=== PATIENT | female | born 1995 | race Caucasian/White ===

== ENCOUNTER 2018-08-21 17:12 | Emergency (ER) | payer OTHER ==
[~2018-08-21] VITALS: Ht 180.3 cm; Wt 84.1 kg
[~2018-08-21 17:12] MED LIST: ATIVAN 0.50.5 MG/TAB PO; FLOVENT DI100 MCG/Ac IH; NO HOME MEDS; RT ADVAIR 228 DISKUS IH; SINGULAIR 5M5 MG/TAB PO; VENTOLIN0.09 MG IH; ZANTAC 150 EFF150 M1 PO; ZYRTEC 10MG10 MG PO
[2018-08-21 17:27] VITALS: BP 119/77; TEMP 98.3
[2018-08-21] MEDS ORDERED: LEXAPRO 10MG10 MG PO (17:54)
[2018-08-21] MEDS ORDERED: ZOFRAN ODT4 MG PO (19:20)
[2018-08-21 19:33] VITALS: PULSE 70
== END 2018-08-21 19:33 | disposition home or self-care (01) ==
LOC: COL.ER 17:12
DX: S06.0X0A Concussion without loss of consciousness, initial encounter (principal); S16.1XXA Strain of muscle, fascia and tendon at neck level, initial encounter; R40.2412 Glasgow coma scale score 13-15, at arrival to emergency department; W19.XXXA Unspecified fall, initial encounter; W22.8XXA Striking against or struck by other objects, initial encounter

== ENCOUNTER 2018-09-16 01:06 | Emergency (ER) | payer OTHER ==
[~2018-09-16] VITALS: Ht 180.3 cm; Wt 81.8 kg
[~2018-09-16 01:06] MED LIST changes: +LEXAPRO 10MG10 MG PO; +ZOFRAN ODT4 MG PO
[2018-09-16 01:13] VITALS: TEMP 98.2
[2018-09-16 01:39] LABS: BASO # 0.1 (0.0-0.2); BASO % 0.5 % (0.0-2.0); EOS # 0.1 (0.0-0.7); EOS % 0.4 % (0-4.0); GRAN # 8.2 (1.4-6.5); GRAN % 66.5 % (42.2-75.2); HEMATOCRIT 41.3 % (37.0-47.0); HEMOGLOBIN 14.2 g/dl (12.5-16.0); LYMPH # 2.9 (1.2-3.4); LYMPH % 23.1 % (20.0-51.0); MEAN CELL VOLUME 88 fl (80.0-100.0); MEAN CORPUSCULAR HEMOGLOBIN 30 pg (27.0-31.0); MEAN CORPUSCULAR HGB CONC 34 g/dl (33.0-37.0); MEAN PLATELET VOLUME 9.5 fl (7.4-10.4); MONO # 1.1 (0.1-0.6); MONO % 9.2 % (1.7-9.3); PLATELET COUNT 363 K/mm3 (130-400); RED BLOOD COUNT 4.71 M/mm3 (4.10-5.30); REDCELL DISTRIBUTION WIDTH-CV 11.9 % (11.5-14.5)
[2018-09-16 01:50] LABS: ACETAMINOPHEN 26 ug/mL (10-30); ALANINE AMINOTRANSFERASE 31 U/L (9-52); ALBUMIN 4.1 gm/dL (3.5-5.0); ALCOHOL(ethanol),MEDICAL < 10 mg/dL; ALKALINE PHOSPHATASE 87 U/L (50-136); ANION GAP 13 mmol/L (7-16); AST,SGOT 31 U/L (15-37); BILIRUBIN,TOTAL 0.5 mg/dL (0.0-1.0); BLOOD UREA NITROGEN 7 mg/dL (7-17); CALCIUM 9.6 mg/dL (8.4-10.2); CARBON DIOXIDE 25 mmol/L (22-30); CHLORIDE 102 mmol/L (98-107); CREATININE, serum 0.58 (0.52-1.25); GLUCOSE 91 mg/dL (74-106); POTASSIUM 4.1 mmol/L (3.4-5.0); SALICYLATE < 1.0 mg/dL; SODIUM 140 mmol/L (137-145); TOTAL PROTEIN 7.1 gm/dL (6.4-8.2)
[2018-09-16 02:31] LABS: TRICYCLIC ANTIDEPRESS URINE NEGATIVE
[2018-09-16] MEDS ORDERED: ATIVAN 0.50.5 MG/TAB PO (02:50)
[2018-09-16 03:58] VITALS: BP 128/92; PULSE 100
== END 2018-09-16 03:57 | disposition home or self-care (01) ==
LOC: COL.ER 01:06
PROVIDERS: Emergency Medicine
DX: F32.9 Major depressive disorder, single episode, unspecified (principal); F41.9 Anxiety disorder, unspecified; Z90.49 Acquired absence of other specified parts of digestive tract

== ENCOUNTER 2021-02-02 23:37 | Outpatient (CLI) | payer MEDICAID ==
[~2021-02-02] VITALS: Ht 175.3 cm; Wt 94.9 kg
--- NOTE | 2021-02-02 23:40 | NUR ---
Ambulatory to unit for assessment. oriented to room monitor, plan of care. Pt reports " headaches every day and chest heaviness at night since my 28 wk appopintment." Reports to 650mg Tylenol @ 1800. Pt social, no obvious distress. x
[2021-02-03 00:30] VITALS: BP 112/66; PULSE 88; TEMP 98.1
[2021-02-03] MEDS ORDERED: CONCEPT DHA1 CAP PO (00:33)
[2021-02-03] MEDS ORDERED: ASPIRIN 81M81 MG/TA2 PO (00:34)
[2021-02-03] MEDS ORDERED: TYLENOL 325MG325 MG PO (00:34)
[2021-02-03 01:00] VITALS: BP 107/70; PULSE 88
[2021-02-03 01:30] VITALS: BP 109/69; PULSE 79
[2021-02-03 01:37] LABS: BASO % 0.2 % (0.0-2.0); EOS # 0.2 K/mm3 (0.0-0.7); EOS % 1.4 % (0.0-4.0); GRAN # 8.1 K/mm3 (1.4-6.5); GRAN % 66.9 % (42.2-75.2); HEMOGLOBIN 12.5 g/dl (12.5-16.0); LYMPH # 2.8 K/mm3 (1.2-3.4); LYMPH % 23.1 % (20.0-51.0); MEAN CELL VOLUME 84 fl (80.0-100.0); MEAN CORPUSCULAR HEMOGLOBIN 31 pg (27-31); MEAN CORPUSCULAR HGB CONC 36 g/dl (33.0-37.0); MEAN PLATELET VOLUME 9.9 fl (7.4-10.4); MONO % 7.9 % (1.7-9.3); PLATELET COUNT 330 K/mm3 (130-400); RED BLOOD COUNT 4.09 M/mm3 (4.10-5.30); REDCELL DISTRIBUTION WIDTH-CV 12.4 % (11.5-14.5)
[2021-02-03 01:50] LABS: ALBUMIN 2.8 gm/dL (3.5-5.0); BILIRUBIN,TOTAL 0.6 mg/dL (0.2-1.2); CALCIUM 8.5 mg/dL (8.4-10.2); CREATININE, serum 0.51 mg/dL (0.57-1.11); POTASSIUM 3.9 mmol/L (3.5-4.5); TOTAL PROTEIN 6.4 gm/dL (6.2-8.1)
[2021-02-03 02:28] LABS: HEMATOCRIT 34.5 % (37.0-47.0)
[2021-02-03 02:30] VITALS: BP 112/70; PULSE 81
--- NOTE | 2021-02-03 02:40 | NUR ---
Discharge instructions reviewed with pt. Questions invited and answered. 0245 Ambulatory off unit.
== END 2021-02-03 02:45 | disposition home or self-care (01) ==
LOC: LDRO 23:37
PROVIDERS: Student in an Organized Health Care Education/Training Program
DX: O26.893 Other specified pregnancy related conditions, third trimester (principal); R51.9 Headache, unspecified; R07.9 Chest pain, unspecified; Z3A.31 31 weeks gestation of pregnancy

== ENCOUNTER 2021-03-28 19:39 | Inpatient (IN) | payer MEDICAID ==
[~2021-03-28] VITALS: Ht 177.8 cm; Wt 98.6 kg
[2021-03-28] VITALS (7 sets, daily range): BP systolic 19–149; BP diastolic 75–95; PULSE 85–112; TEMP 98.1
[~2021-03-28 19:39] MED LIST changes: +ASPIRIN 81M81 MG/TA2 PO; +CONCEPT DHA1 CAP PO; +TYLENOL 325MG325 MG PO
--- NOTE | 2021-03-28 19:39 | NUR ---
1939 G2L1 38.4 WEEKS GEST TO LR2 FOR LABOR CHECK. STATES STARTED HAVING CONTRACTIONS AROUND 1500 TODAY AND ARE BECOMING STRONGER. EFM ON. SVE /-2 WITH PRESENTING PART BALLOTABLE. B/P 137/91 WEDGED TO LEFT SIDE. ADM ASSESSMENT COMPLETED.
--- NOTE | 2021-03-28 21:30 | NUR ---
2129 DR LINARES GIVEN REPORT ON SVE X2, CONTRACTIONS PATTERN, ADM ASSESSMENT AND VS. ORDER RECEIVED TO ADMIT INPATIENT.
--- NOTE | 2021-03-28 22:00 | NUR ---
2200 INT STARTED AND LAB DRAWN. UA OBTAINED. PERMITS SIGNED.
[2021-03-28 22:12] LABS: COLLECTION METHOD CLEAN CATCH
[2021-03-28 22:18] LABS: BASO % 0.3 % (0.0-2.0); EOS # 0.1 K/mm3 (0.0-0.7); EOS % 1.1 % (0.0-4.0); GRAN # 9.1 K/mm3 (1.4-6.5); GRAN % 70.3 % (42.2-75.2); HEMOGLOBIN 12.6 g/dl (12.5-16.0); LYMPH # 2.9 K/mm3 (1.2-3.4); LYMPH % 22.2 % (20.0-51.0); MEAN CELL VOLUME 87 fl (80.0-100.0); MEAN CORPUSCULAR HEMOGLOBIN 30 pg (27-31); MEAN CORPUSCULAR HGB CONC 35 g/dl (33.0-37.0); MEAN PLATELET VOLUME 10.5 fl (7.4-10.4); MONO # 0.8 K/mm3 (0.1-0.6); MONO % 5.8 % (1.7-9.3); PLATELET COUNT 360 K/mm3 (130-400); RED BLOOD COUNT 4.17 M/mm3 (4.10-5.30); REDCELL DISTRIBUTION WIDTH-CV 12.8 % (11.5-14.5)
[2021-03-28 22:20] LABS: HEMATOCRIT 36.1 % (37.0-47.0); MUCOUS Present (NOT PRESENT); PH 6 (5-8); URINE APPEARANCE Hazy (CLEAR/HAZY); URINE BACTERIA Rare /hpf (NONE SEEN); URINE BILIRUBIN Negative (NEGATIVE); URINE BLOOD Negative (NEGATIVE); URINE COLOR Yellow (YELLOW); URINE GLUCOSE Negative (NEGATIVE); URINE KETONE Trace (NEGATIVE); URINE LEUKOCYTE ESTERASE 1+ (NEGATIVE); URINE NITRATE Negative (NEGATIVE); URINE PROTEIN(semi-quant) Negative (NEGATIVE); URINE RBC 0-2 /hpf (0-2); URINE UROBILINOGEN Negative (NEGATIVE)
[2021-03-28 22:32] LABS: ALBUMIN 2.8 gm/dL (3.5-5.0); CALCIUM 8.8 mg/dL (8.4-10.2); CREATININE, serum 0.54 mg/dL (0.57-1.11); POTASSIUM 4.1 mmol/L (3.5-4.5); TOTAL PROTEIN 6.4 gm/dL (6.2-8.1)
--- NOTE | 2021-03-28 22:50 | NUR ---
2249 RETURNED TO BED AFTER SITTING UP IN CHAIR SINCE 2214. EFM ON. IV FLUIDS STARTED AND IV ABX STARTED. CONTRACTIONS NOT INTENSE ON ADMISSION.
[2021-03-28 22:52] LABS: BILIRUBIN,TOTAL 0.4 mg/dL (0.2-1.2)
[2021-03-29] VITALS: BP 135/84; PULSE 82; TEMP 97.4
[2021-03-29 00:30] VITALS: BP 124/81; PULSE 81
--- NOTE | 2021-03-29 00:30 | NUR ---
0038- PT WANTING TO GET UP AND WALK AROUND THE HALLWAY. 0100- PT WALKING AROUND THE HALLWAY AND STATES PAIN IS BETTER.
[2021-03-29 01:30] VITALS: BP 133/87; PULSE 86
[2021-03-29 02:30] VITALS: BP 117/78; PULSE 82
--- NOTE | 2021-03-29 02:30 | NUR ---
0114- PT BACK TO ROOM FROM WALKING. 0130- PT REPORTS PAIN FEELS A LITTLE BETTER AFTER WALKING. PT ASKED ABOUT IF SHE WASN'T TRULY IN LABOR IF SHE COULD HAVE THE OPTION TO RETURN HOME. D/W PT ABOUT LABOR PRECAUTIONS AND WHEN TO RETURN. TALKED ABOUT LEAKING OF FLUID, SEVERE PAIN, VAGINAL BLEEDING, DECREASED MOVEMENT, CTX ARE CLOSER TOGETHER AND LESS THEN 5 MINUTES APART AND UNABLE TO WALK, TALK OR BREATHE THROUGH CTX TO RETURN TO THE HOSPITAL FOR EVALUATION. PT REPORTS THAT THEY ONLY LIVE ABOUT 5 MINUTES AWAY. PT AND SPOUSE DEMONSTRATE UNDERSTANDING OF WHEN TO RETURN. TOLD THE PT THAT I WOULD DISCUSS W/ DR. LINARES AND LET HER KNOW. 0200- REPORT GIVEN TO DR. LINARES ABOUT PT INQUIRING ABOUT GOING HOME. PT REPORTS CTX FEEL MORE SPACED OUT AND NOT INTENSE. SVE WAS DONE AND PT DILATED 5/-2, INTACT. CTX HAVE SPACED OUT PER TOCO, FHTS REACTIVE. PER DR. LINARES THE PT COULD STAY AND BE AUGMENTED WITH PITOCIN OR HAVE ADMITTING RN RECHECK CERVIX AND SEE IF THE PT HAS MADE A SIGNIFICANT CHANGE FROM WHEN SHE CHECKED HER LAST AND GIVE THE PT THE OPTION. 0220- BRANDAN SERRANO AT AND PERFORMED SVE 570/-2, POSTERIOR. 0230- D/W THE PT AND HER SPOUSE ABOUT WHAT OFFERED AND PT IS INCLINED TO GO HOME. SHE STATES THAT HER CTX HAVE SPACED OUT AND ARE MORE TOLERABLE AND THAT SHE WOULD RATHER GO HOME AND BE MORE COMFORTABLE. I EXPLICITY WENT OVER LABOR PRECAUTIONS WITH PT AND SHE DEMONSTRATES UNDERSTANDING OF WHEN TO RETURN TO LDR. RN CALLED DR. LINARES AND LET HER KNOW PT'S DECISION. PER PROVIDER OKAY TO DC PT HOME. 0240- TALKED WITH PT AND OFFERED HER ONE MORE TIME TO STAY IF SHE WOULD LIKE AND GET AUGMENTED WITH PITOCIN. PT DECLINES AND WOULD LIKE TO BE DC'D HOME. DC INSTRUCTIONS REVIEWED WITH PT AND SPOUSE AND VERBALIZES UNDERSTANDING. VSS.
[2021-03-29 02:45] VITALS: BP 128/88; PULSE 92
--- NOTE | 2021-03-29 03:10 | NUR ---
DISCHARGE INSTRUCTIONS REVIEWED AND SIGNED WITH PT. PT STATES SHE FEELS CONFIDENT LEAVING AND KNOWING WHEN TO RETURN. ACCOMPANIED BY SPOUSE, PT AMBULATES OFF FLOOR TO DC HOME.
== END 2021-03-29 03:10 | disposition home or self-care (01) | DRG 833 ==
LOC: LDRO 19:39 → LDR 21:45
PROVIDERS: Student in an Organized Health Care Education/Training Program; ADMIT Obstetrics & Gynecology
DX: O99.820 Streptococcus B carrier state complicating pregnancy (principal); O99.343 Other mental disorders complicating pregnancy, third trimester; F41.3 Other mixed anxiety disorders; F32.A Depression, unspecified; O99.213 Obesity complicating pregnancy, third trimester; Z3A.38 38 weeks gestation of pregnancy; Z23 Encounter for immunization
CPT/HCPCS: J2540; J7120

== ENCOUNTER 2021-04-03 09:32 | Inpatient (IN) | payer MEDICAID ==
[~2021-04-03] VITALS: Ht 175.3 cm; Wt 99.1 kg
[2021-04-04] VITALS (33 sets, daily range): BP systolic 111–155; BP diastolic 63–98; PULSE 73–105; TEMP 97.8–98.6
[2021-04-04 08:00] LABS: BASO % 0.4 % (0.0-2.0); EOS # 0.1 K/mm3 (0.0-0.7); EOS % 1.1 % (0.0-4.0); GRAN # 7.3 K/mm3 (1.4-6.5); GRAN % 65.2 % (42.2-75.2); HEMOGLOBIN 12.5 g/dl (12.5-16.0); LYMPH # 2.7 K/mm3 (1.2-3.4); LYMPH % 24.1 % (20.0-51.0); MEAN CELL VOLUME 87 fl (80.0-100.0); MEAN CORPUSCULAR HEMOGLOBIN 30 pg (27-31); MEAN CORPUSCULAR HGB CONC 34 g/dl (33.0-37.0); MEAN PLATELET VOLUME 10.9 fl (7.4-10.4); MONO % 8.8 % (1.7-9.3); PLATELET COUNT 366 K/mm3 (130-400)
[2021-04-04 08:06] LABS: HEMATOCRIT 36.5 % (37.0-47.0)
--- NOTE | 2021-04-04 15:35 | NUR ---
PT EATING MEAL AT THIS TIME, TOLERATING PO DIET WELL. UNABLE TO RAISE LEFT LEG, STATES "MY LEGS FEEL BETTER, MAYBE 80% NORMAL." WILL ALLOW PT MORE TIME TO REST AND MOVE TO ROOM WHEN EPIDURAL WEARS OFF. VITAL SIGNS STABLE. LOCHIA REMAINS SCANT. FUNDUM FIRM AND 2FB BELOW UMBILICUS AT THIS TIME.
--- NOTE | 2021-04-04 16:40 | NUR ---
PT REPORTS FULL SENSATION TO BLE. ABLE TO RAISE AND HOLD LEGS X5 SECOND EACH. FUNDUS FIRM AND 2FB BELOW UMBILICUS, LOCHIA SCANT WITH NO CLOTS NOTED. VITAL SIGNS STABLE. ASSISTED TO SITTING POSITION, DENIES DIZZINESS. EPIDURAL CATHETER REMOVED AT THIS TIME, PT TOLERATED PROCEDURE WELL. PT ASSISTED TO RESTROOM, STEADY GAIT NOTED. NEW GOWN, UNDERWEAR, PAD, ICE PACK AND CARMEN CARE PROVIDED. PT TOLERATED ACTIVITY WELL. ASSISTED TO ROM 208 TO CONTINUE RECOVERY AT THIS TIME. EDUCATED ON NEED FOR 3 VOIDS BEFORE WE CAN REMOVE INT. PT ORIENTED TO NEW ROOM AND PLAN OF CARE.
--- NOTE | 2021-04-04 18:54 | NUR ---
Report received. Plan of care reviewed.
[2021-04-05 03:05] VITALS: BP 135/87; PULSE 80; TEMP 97.7
[2021-04-05 09:30] VITALS: BP 124/77; PULSE 75; TEMP 97.9
--- NOTE | 2021-04-05 12:06 | NUR ---
Ibuprofen 600 mg, tylenol 1000 mg given as ordered.
[2021-04-05] MEDS ORDERED: IBU600 MG PO (13:18)
[2021-04-05 17:40] VITALS: BP 138/83; PULSE 97; TEMP 97.8
[2021-04-05 19:49] VITALS: BP 134/81; PULSE 88; TEMP 97.7
--- NOTE | 2021-04-06 07:30 | NUR ---
Rests in bed, alert, holding baby. 0745 Ibuprofen 600 mg given as ordered. Denies any other need at this time.
[2021-04-06 09:00] VITALS: BP 127/73; PULSE 89; TEMP 97.9
--- NOTE | 2021-04-06 09:30 | NUR ---
Rests in bed, alert. Denies any needs at this time.
== END 2021-04-06 12:41 | disposition home or self-care (01) | DRG 807 ==
LOC: LDR 04-04 06:10 → OB 04-04 16:29
PROVIDERS: ADMIT Obstetrics & Gynecology
PROC: 10E0XZZ Delivery of Products of Conception, External Approach (ICD-10-PCS; principal; 2021-04-04)
PROC: 0HQ9XZZ Repair Perineum Skin, External Approach (ICD-10-PCS; 2021-04-04)
PROC: 10907ZC Drainage of Amniotic Fluid, Therapeutic from Products of Conception, Via Natural or Artificial Opening (ICD-10-PCS; 2021-04-04)
DX: O99.824 Streptococcus B carrier state complicating childbirth (principal); Z37.0 Single live birth; O99.344 Other mental disorders complicating childbirth; F41.9 Anxiety disorder, unspecified; F32.A Depression, unspecified; O70.0 First degree perineal laceration during delivery; O69.1XX0 Labor and delivery complicated by cord around neck, with compression, not applicable or unspecified; Z3A.39 39 weeks gestation of pregnancy; Z79.82 Long term (current) use of aspirin
CPT/HCPCS: J2540; J2590; J7120

== ENCOUNTER 2022-04-07 08:15 | Inpatient (IN) | payer OTHER, MEDICAID ==
[~2022-04-07] VITALS: Ht 175.3 cm; Wt 102.3 kg
[~2022-04-07 08:15] MED LIST changes: +IBU600 MG PO
[2022-04-08] VITALS (17 sets, daily range): BP systolic 113–156; BP diastolic 58–95; PULSE 69–112; TEMP 97.9–98.5
--- NOTE | 2022-04-08 06:35 | NUR ---
Pt arrived on unit ambulatory for scheduled induction of labor. Pt reports occasional contractions, denies any leaking of fluid or vaginal bleeding and reports normal movement. EFM and toco monitors started. Vital signs WNL. Plan of care for IOL reviewed with pt and .
[2022-04-08] MEDS ORDERED: ASPIRIN 81M81 MG/TA2 PO (06:56)
[2022-04-08 07:24] LABS: BASO # 0.1 K/mm3 (0.0-0.2); BASO % 0.4 % (0.0-2.0); EOS # 0.1 K/mm3 (0.0-0.7); EOS % 0.9 % (0.0-4.0); GRAN # 8.9 K/mm3 (1.4-6.5); HEMOGLOBIN 11.5 g/dl (12.5-16.0); LYMPH % 16.6 % (20.0-51.0); MEAN CELL VOLUME 84 fl (80.0-100.0); MEAN CORPUSCULAR HEMOGLOBIN 28 pg (27-31); MEAN CORPUSCULAR HGB CONC 33 g/dl (33.0-37.0); MEAN PLATELET VOLUME 10.4 fl (7.4-10.4); MONO # 0.9 K/mm3 (0.1-0.6); MONO % 7.4 % (1.7-9.3); PLATELET COUNT 345 K/mm3 (130-400); RED BLOOD COUNT 4.12 M/mm3 (4.10-5.30)
[2022-04-08 07:25] LABS: HEMATOCRIT 34.5 % (37.0-47.0)
--- NOTE | 2022-04-08 08:25 | NUR ---
Roles on the unit. FHR tracing and ctx pattern reviewed. Pt off EFM and up to the bathroom.
--- NOTE | 2022-04-08 09:02 | NUR ---
0843- Pt sitting up on the edge of the bed for epidural placement per pt's request. ANGEL LUIS Haley at the bedside. Time out done. 0845- EFM tracing maternal HR as correlates with SPO2 monitor. 901- Test dose done per ANGEL LUIS Haley. See anesthesia records for details. 908- Assisted pt back to supine position with left wedge. EFM and toco monitors adjusted.
--- NOTE | 2022-04-08 09:47 | NUR ---
0930- Pt reports pain and pressure with contractions. SVE done by this RN /-1. 0935- Pt reports worsening and constant pressure. SVE done by this RN /+2. Dr. Knight notified and requested for delivery. 0944- Dr. Knight at the bedside. Pt set up for delivery. medical staffing coordinator to the bedside. 0946- Pushing started. 47- of viable male . Hector placed on mom's abdomen. Cords clamped and cut. Care of the given to nursery RN at the bedside. 0950- Straight cath done. 0951- of placenta. Pitocin started at 333ml/hr per order and protocol. Fundus firm and lochia WNL per Dr. Knight.
--- NOTE | 2022-04-08 12:00 | NUR ---
Pt up to the bathroom with stand by assist and without complications. Pt was not able to void. Mara-care was done. Pt transferred to room 207 ambulatory. Oriented to room, bed and call light within reach. Plan of care reviewed with pt and .
[2022-04-09 03:00] VITALS: BP 127/87; PULSE 82; TEMP 98.5
[2022-04-09 07:45] VITALS: BP 134/89; PULSE 90; TEMP 97.4
[2022-04-09] MEDS ORDERED: IBU800 M1 PO (08:16)
--- NOTE | 2022-04-09 09:05 | NUR ---
Initial visit; Parents thanked Journalists And Other Writers for looking in on them and offering God's blessings and congratulations for the of their son. Journalists And Other Writers thanked family for choosing [facility].
--- NOTE | 2022-04-09 12:14 | NUR ---
DISCHARGE EDUCATION COMPLETED, DISCUSSED IMPORTANCE OF FOLLOW UP APPOINTMENT. HEALTH HISTORY PROVIDED. QUESTIONS INVITED AND ANSWERED.
== END 2022-04-09 13:02 | disposition home or self-care (01) | DRG 807 ==
LOC: LDR 04-08 06:30 → OB 04-08 06:30
PROVIDERS: ADMIT Obstetrics & Gynecology
PROC: 10E0XZZ Delivery of Products of Conception, External Approach (ICD-10-PCS; principal; 2022-04-08)
PROC: 0HQ9XZZ Repair Perineum Skin, External Approach (ICD-10-PCS; 2022-04-08)
PROC: 3E033VJ Introduction of Other Hormone into Peripheral Vein, Percutaneous Approach (ICD-10-PCS; 2022-04-08)
DX: O48.0 Post-term pregnancy (principal); Z37.0 Single live birth; O76 Abnormality in fetal heart rate and rhythm complicating labor and delivery; Z3A.40 40 weeks gestation of pregnancy; O70.0 First degree perineal laceration during delivery; Z23 Encounter for immunization
CPT/HCPCS: J2590; J2795; J7120

== ENCOUNTER 2023-04-12 10:41 | Inpatient (IN) | payer OTHER ==
[~2023-04-12] VITALS: Ht 175.3 cm; Wt 104.1 kg
[~2023-04-12 10:41] MED LIST changes: +IBU800 M1 PO
[2023-04-19] VITALS (26 sets, daily range): BP systolic 114–154; BP diastolic 55–96; PULSE 85–126; TEMP 97.8–98.8
[2023-04-19] MEDS ORDERED: DURLAZA162.5 MG PO (06:30)
[2023-04-19] MEDS ORDERED: Penicillin G Potassium 5,000,000 UNITS in NS 100 ML IV ONE (06:45)
[2023-04-19] MEDS ORDERED: LR & Oxytocin 500 ML IV SCH ×2 (06:45)
[2023-04-19] MEDS ORDERED: LR 1,000 ML IV SCH (06:45)
[2023-04-19] MEDS ORDERED: Penicillin G Potassium 2,500,000 UNITS in NS 100 ML IV SCH (10:33)
[2023-04-19 10:59] LABS: BASO % 0.3 % (0.0-2.0); EOS # 0.1 K/mm3 (0.0-0.7); EOS % 0.6 % (0.0-4.0); GRAN # 6.9 K/mm3 (1.4-6.5); GRAN % 70.4 % (42.2-75.2); HEMOGLOBIN 10.9 g/dl (12.5-16.0); LYMPH # 2.1 K/mm3 (1.2-3.4); LYMPH % 20.8 % (20.0-51.0); MEAN CELL VOLUME 81 fl (80.0-100.0); MEAN CORPUSCULAR HEMOGLOBIN 27 pg (27-31); MEAN CORPUSCULAR HGB CONC 33 g/dl (33.0-37.0); MEAN PLATELET VOLUME 10.8 fl (7.4-10.4); MONO # 0.7 K/mm3 (0.1-0.6); MONO % 7.1 % (1.7-9.3); PLATELET COUNT 341 K/mm3 (130-400); RED BLOOD COUNT 4.11 M/mm3 (4.10-5.30); REDCELL DISTRIBUTION WIDTH-CV 13.8 % (11.5-14.5)
[2023-04-19 11:03] LABS: HEMATOCRIT 33.3 % (37.0-47.0)
--- NOTE | 2023-04-19 11:09 | NUR ---
Pt and friends arrive ambulatory at 0945 for scheduled induction of labor. Pt changes into gown, EFM explained and placed, VS done. IV started in left hand, labs drawn, LR and Lupe started. Pt denies contractions, leaking of fluid, and vaginal bleeding, reports good movement. Consents discussed and signed. Pt denies questions at this time. Cat 1 FHR strip, pitocin started at 1034. Dr. Knight notified that pt here and induction started. Pt requests ability to move around, discussed limitations with need for constant monitoring, but able to use wireless monitor and take IV pole. Pt verbalizes understanding and agrees. Pt connected to wirelss monitor and provided ball at bedside.
--- NOTE | 2023-04-19 12:14 | NUR ---
FHR monitor tracing R [id number]
--- NOTE | 2023-04-19 12:35 | NUR ---
Pt wishes to ambulate around unit. Wireless monitor running. SVE /-2, membranes intact at 1234. Pt out of bed to walk around unit.
[2023-04-19] MEDS ORDERED: Ondansetron 4 MG/2 ML VIAL IV PRN (12:45)
[2023-04-19] MEDS ORDERED: Naloxone 0.4 MG/ML VIAL IV PRN ×2 (12:45→19:00)
[2023-04-19] MEDS ORDERED: diphenhydrAMINE 50 MG/ML 1 ML VIAL IV PRN (12:45)
[2023-04-19] MEDS ORDERED: diphenhydrAMINE 25 MG CAP PO PRN (12:45)
[2023-04-19] MEDS ORDERED: ePHEDrine 50 MG/10 ML VIAL IV PRN (12:45)
--- NOTE | 2023-04-19 12:52 | NUR ---
uterine activity tachsystole. pitocin decreased from 6 to 4 at 1210
--- NOTE | 2023-04-19 13:00 | NUR ---
Pt ambulating around unit, difficulty keeping FHR monitor tracing during ambulation. FHR monitor tracing MHR at [phone] and [phone].
--- NOTE | 2023-04-19 13:30 | NUR ---
Pt returns to room at 1305, sitting on ball at bedside. Dr. Knight on unit, pt moved to bed at 1310 for physician exam. Roles to bedside at 1315. SVE per provider /-2. AROM at 1316, clear fluid noted. Pt repositioned for comfort. Per Dr. Knight, may stop pitocin if contractions continue in frequency.
--- NOTE | 2023-04-19 14:10 | NUR ---
Pt ambulating in room, difficulty tracing FHR at this time. Pt returns to sitting in bed at 1406.
--- NOTE | 2023-04-19 15:30 | NUR ---
Pt moved to ball at bedside at 1430. Difficulty tracing FHR continuously in this position. FHR tracing MHR at 1434 and 1436. RN at bedside continuously adjusting monitor. At 1523, pt moves to ambulate in room, FHR monitor tracing MHR [id number]. 1535 SVE 6/-2. Pt then up to ambulate halls, returns to room to sit on ball at 1605.
--- NOTE | 2023-04-19 16:51 | NUR ---
EFM NOT MONITORED CONSISTENTLY AT THIS TIME, PT AMBULATING
--- NOTE | 2023-04-19 16:56 | NUR ---
EFM NOT CONSISTENTLY MONITORED AT THIS TIME, PT AMBULATING
--- NOTE | 2023-04-19 17:15 | NUR ---
1700 - pt returns to room, reports increasing pressure with contractions. SVE at [address] Knight notified of pt progress. Pt repositioned RL with peanut ball at 1715
--- NOTE | 2023-04-19 17:55 | NUR ---
Roles to bedside at 0155. SVE per provider /-3. Pt encourage to void bladder, pt up to bathroom at 6521
--- NOTE | 2023-04-19 18:30 | NUR ---
Pt returns to bed at 180, positioned LL with peanut ball. Pt reports increased pressure with desire to bear down. SVE AL/100/-1. Pt continues to breathe through contractions. At 181, pt noted involuntarily pushing. Roles on unit for another delivery and notified. Dr. Knight to bedside at 182, encouraged pt to start pushing with contractions. Bed broken down, pt prepped for delivery. Viable male delivered via at 182. placed on mother's abdomen where dried and stimulated. Care of infant transferred to BRANDAN Saucedo of nursery. Placenta delivered spontaneously at 182. Perineum intact per physician. BRANDAN Duke assumes care of pt at this time.
[2023-04-19] MEDS ORDERED: Measles/Mumps/Rubella Virus Vaccine Live w Diluent 0.5 ML VIAL SQ SCH (19:00)
[2023-04-19] MEDS ORDERED: Mag/Al Hydrox/Simeth Susp 30 ML CUP PO PRN (19:00)
[2023-04-19] MEDS ORDERED: Ibuprofen 800 MG TAB PO SCH (19:00)
[2023-04-19] MEDS ORDERED: Acetaminophen 500 MG TAB PO SCH (19:00)
[2023-04-19] MEDS ORDERED: Phenylephrine/Mineral Oil/Petrolatum 57 GM TUBE RC PRN (19:00)
[2023-04-19] MEDS ORDERED: oxyCODONE 5 MG TAB PO PRN (19:00)
[2023-04-19] MEDS ORDERED: Witch Hazel 50% Pads Bulk TUB TP PRN (19:00)
[2023-04-19] MEDS ORDERED: Loratadine 10 MG TAB PO PRN (19:00)
[2023-04-19] MEDS ORDERED: Magnes Hydrox (MOM) 80 MG/ML 30 ML CUP PO PRN (19:00)
[2023-04-19] MEDS ORDERED: Prenatal Vitamins/Iron/FA TAB PO SCH (21:00)
[2023-04-19] MEDS ORDERED: traZODone 50 MG TAB PO PRN (21:00)
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
[2023-04-20 00:40] VITALS: BP 133/60; PULSE 87
[2023-04-20 04:16] VITALS: BP 133/78; PULSE 70; TEMP 98.7
[2023-04-20 07:30] VITALS: BP 120/72; PULSE 75; TEMP 97.9
[2023-04-20] MEDS ORDERED: Sennosides/Docusate 8.6-50 MG TAB PO SCH (08:00)
[2023-04-20] MEDS ORDERED: Prenatal Vitamins/Iron/FA TAB PO SCH (09:00)
[2023-04-20] MEDS ORDERED: Escitalopram 10 MG TAB PO SCH (09:00)
--- NOTE | 2023-04-20 09:15 | NUR ---
Initial visit; Patient thanked Driving Teacher for offering congratulations and God's blessings for the of her son. Driving Teacher thanked new mom for choosing [facility].
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
[2023-04-20] MEDS ORDERED: Influenza Virus Vaccine, Quad '23-24 (6 MOS+) 0.5 ML SYRINGE IM SCH (11:30)
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
[2023-04-20 17:13] VITALS: BP 145/86; PULSE 81; TEMP 98.1
[2023-04-20 19:33] VITALS: BP 135/88; PULSE 71; TEMP 99.3
[2023-04-21 08:00] VITALS: BP 126/80; PULSE 78; TEMP 98.2
== END 2023-04-21 14:05 | disposition home or self-care (01) | DRG 807 ==
LOC: OB 04-19 09:30 → LDR 04-19 09:30 → OB 04-19 10:40 → LDR 04-19 15:56 → OB 04-19 21:42
PROVIDERS: ADMIT Obstetrics & Gynecology
PROC: 10E0XZZ Delivery of Products of Conception, External Approach (ICD-10-PCS; principal; 2023-04-19)
PROC: 3E033VJ Introduction of Other Hormone into Peripheral Vein, Percutaneous Approach (ICD-10-PCS; 2023-04-19)
PROC: 10907ZC Drainage of Amniotic Fluid, Therapeutic from Products of Conception, Via Natural or Artificial Opening (ICD-10-PCS; 2023-04-19)
DX: O36.63X0 Maternal care for excessive fetal growth, third trimester, not applicable or unspecified (principal); Z37.0 Single live birth; O99.344 Other mental disorders complicating childbirth; O99.824 Streptococcus B carrier state complicating childbirth; F32.A Depression, unspecified; Z23 Encounter for immunization; Z3A.39 39 weeks gestation of pregnancy
CPT/HCPCS: J2540; J2590; J7120